=== PATIENT | male | born 1950 | race African-American/Black ===

== ENCOUNTER 2024-01-16 17:38 | Inpatient (IN) | payer OTHER ==
[~2024-01-16] VITALS: Ht 167.6 cm; Wt 59.0 kg
--- NOTE | 2024-01-16 17:55 | NUR ---
BIB FAMILY C/O LEFT SIDED UPPER BACK AND CHEST PAIN X 3 DAYS.
[2024-01-16 17:56] VITALS: BP 148/111; TEMP 98.5; O2SAT 96
--- NOTE | 2024-01-16 18:25 | NUR ---
BLOOD DRAWN AND SENT TO LAB
--- NOTE | 2024-01-16 18:43 | NUR ---
move sheet submitted admit: CP, stable, tele
[2024-01-16 19:01] LABS: BASOPHILS % (AUTO) 0.6 % (0.0-2.0); EOSINOPHILS # (AUTO) 0.4 K/uL (0.0-0.7); EOSINOPHILS % (AUTO) 5.3 % (0.0-6.0); HEMATOCRIT 40 % (39-51); LYMPHOCYTES # (AUTO) 1.8 K/uL (0.8-4.8); LYMPHOCYTES % (AUTO) 26.9 % (20.0-44.0); MEAN CORPUSCULAR HEMOGLOBIN 30 PG (26.0-33.0); MEAN CORPUSCULAR HGB CONC 33 g/dl (31.0-36.0); MEAN CORPUSCULAR VOLUME 91 fL (80-96); MONOCYTES # (AUTO) 0.5 K/uL (0.1-1.30); MONOCYTES % (AUTO) 8.2 % (2.0-12.0); NEUTROPHILS # (AUTO) 3.9 K/uL (1.8-8.9); PLATELET COUNT (AUTO) 195 K/uL (150-450); RED BLOOD CELL COUNT(AUTO) 4.34 MIL/uL (4.5-6.0); RED CELL DISTRIBUTION WIDTH 13.5 % (11.5-15.0); WHITE BLOOD COUNT (AUTO) 6.6 K/uL (4.3-11.0)
[2024-01-16 19:08] LABS: CALCIUM, SERUM 9.1 mg/dL (8.5-10.1); CARBON DIOXIDE 30 mmol/L (21-32); CHLORIDE 102 mmol/L (98-107); GLUCOSE 226 mg/dL (74-106); POTASSIUM 3.8 mmol/L (3.5-5.1); SODIUM SERUM 141 mmol/L (136-145); UREA NITROGEN, BLOOD 13 mg/dL (7-18)
[2024-01-16 19:21] LABS: ALANINE AMINOTRANSFERASE 30 U/L (12-78); ALBUMIN 3.5 g/dL (3.4-5.0); ALKALINE PHOSPHATASE 97 U/L (46-116); ASPARTATE AMINOTRANSFERASE 18 U/L (15-37); BILIRUBIN,DIRECT 0.1 mg/dL (0.0-0.2); BILIRUBIN,TOTAL 0.2 mg/dL (0.2-1.0); NT-PRO BNP 119 pg/mL (0-125); TOTAL PROTEIN, SERUM 7.7 g/dL (6.4-8.2)
[2024-01-16] MEDS ORDERED: ASPIRIN 325 MG TABLET ONE (19:59)
[2024-01-16] MEDS: ASPIRIN 325 MG TABLET PO ONE (20:02)
--- NOTE | 2024-01-16 20:35 | NUR ---
REPORT GIVEN TO [facility] ROOM 115 FOR [facility]
--- NOTE | 2024-01-16 20:56 | NUR ---
PATIENT TRANSFERED AND ADMITTED PER [facility]
[2024-01-16] MEDS ORDERED: ACETAMINOPHEN 325 MG TABLET PO PRN (21:00)
[2024-01-16] MEDS ORDERED: MAGNESIUM HYDROXIDE 30 ML UDC PO PRN (21:00)
[2024-01-16] MEDS ORDERED: ENOXAPARIN SODIUM 40 MG/0.4 ML DISP.SYRIN SQ SCH (21:00)
[2024-01-16] MEDS ORDERED: MAG HYDROX/AL HYDROX/SIMETH 30 ML UDC PO PRN (21:00)
[2024-01-16] MEDS ORDERED: ZOLPIDEM TARTRATE 5 MG TABLET PO PRN (21:00)
[2024-01-16] MEDS ORDERED: Z GUARD REMEDY 4 OZ OINT TP PRN (21:00)
[2024-01-16] MEDS ORDERED: ONDANSETRON HCL/PF 4 MG/2 ML VIAL IVP PRN (21:00)
[2024-01-16] MEDS ORDERED: NITROGLYCERIN 30 GM TUBE TP PRN (21:00)
--- NOTE | 2024-01-16 21:00 | NUR ---
PATIENT LEFT AMA, SHE SAID SHE'S OK, SHE WAS TOLD IN THE ER THAT ALL HER LABS ARE FINE AND SHE CAN VISIT THE PRIMARY DOCTOR IN THE MORNING, [place] FRY AND PATIENT EXPERIENCE COORDINATORFELICIA SANTANA MADE AWARE, PATIENT SIGNED AMA, REMOVED IV LINE.
[2024-01-17] MEDS ORDERED: PANTOPRAZOLE 40 MG TABLET.DR PO SCH (07:30)
[2024-01-17] MEDS ORDERED: ASPIRIN 81 MG TAB.CHEW PO SCH (09:00)
== END 2024-01-16 22:42 | disposition left against medical advice (07) | DRG 206 ==
LOC: ER 17:38 → TELE1 20:21
PROVIDERS: ADMIT Nurse Practitioner Family; ATTEND Nurse Practitioner Family
DX: M94.0 Chondrocostal junction syndrome [Tietze] (principal); I10 Essential (primary) hypertension; E11.9 Type 2 diabetes mellitus without complications; E78.5 Hyperlipidemia, unspecified; Z88.5 Allergy status to narcotic agent; Z53.29 Procedure and treatment not carried out because of patient's decision for other reasons
CPT/HCPCS: 36415; 71045-TC; 80048-TC; 80076-TC; 83880; 84484-TC; 85025-TC; G0378